=== PATIENT | female | born 1995 ===

== ENCOUNTER → 2017-12-26 | Outpatient (REF) | payer BC ==
[2017-12-26 11:45] LABS: PLATELET COUNT, AUTOMATED 306 K/uL (150-450)
== END ==
PROVIDERS: ATTEND Nurse Practitioner Family
DX: M79.609 Pain in unspecified limb (principal)
CPT/HCPCS: 82040; 82247; 82310; 82374; 82435; 82565; 82947; 84075; 84132; 84155; 84295; 84450; 84460; 84520; 85025; 85379